=== PATIENT | male | born 1960 | race Caucasian/White ===

== ENCOUNTER 2017-10-20 23:41 | Emergency (ER) | payer SELFPAY, BC | END 2017-10-21 01:14 | disposition left against medical advice (07) | LOC: E/R 23:41 | DX: Z53.21 Procedure and treatment not carried out due to patient leaving prior to being seen by health care provider (principal) ==

== ENCOUNTER 2018-02-24 13:14 | Inpatient (IN) | payer OTHER ==
[2018-02-24 15:54] LABS: URINE PH (Dip) POC 5.5 (5.0-8.5)
[2018-02-24 15:54] LABS: URINE BLOOD (Dip) POC Trace-lysed (NEGATIVE); URINE GLUCOSE (Dip) POC Negative (NEGATIVE); URINE KETONES (Dip) POC Negative (NEGATIVE); URINE LEUKOCYTE EST (Dip) POC Negative (NEGATIVE); URINE NITRITE (Dip) POC Negative (NEGATIVE); URINE TOTAL PROTEIN POC Negative (NEGATIVE)
[2018-02-24] MEDS: ONDANSETRON 4 MG INJ IV (15:54)
[2018-02-24] MEDS: morphine 4 MG/ML VIAL IV (15:54)
[2018-02-24 16:03] LABS: ADD MAN DIFF? NO
[2018-02-24 16:05] LABS: WHITE BLOOD COUNT 7.8 10^3/ul (4.8-10.8)
[2018-02-24 16:05] LABS: BASOPHILS % 0.5 % (0.0-2.0); EOSINOPHILS # 0.1 10^3/ul (0.0-0.5); EOSINOPHILS % 1.8 % (0.0-7.0); HEMATOCRIT 43.3 % (42.0-52.0); HEMOGLOBIN 14.9 g/dl (14.0-18.0); LYMPHOCYTES # 2.6 10^3/ul (0.8-2.9); LYMPHOCYTES % 33.4 % (15.0-51.0); MEAN CORPUSCULAR HEMOGLOBIN 31.8 pg (29.0-33.0); MEAN CORPUSCULAR HGB CONC 34.4 g/dl (32.0-37.0); MEAN CORPUSCULAR VOLUME 92.3 fl (82.0-101.0); MEAN PLATELET VOLUME 10.7 fl (7.4-10.4); MONOCYTE # 0.4 10^3/ul (0.3-0.9); MONOCYTES % 4.6 % (0.0-11.0); NEUTROPHIL # 4.6 10^3/ul (1.6-7.5); NEUTROPHILS % 59.3 % (39.0-77.0); PLATELET COUNT 212 10^3/UL (140-415); RED BLOOD COUNT 4.69 10^6/ul (4.70-6.10); RED CELL DISTRIBUTION WIDTH 12.4 % (11.5-14.5)
[2018-02-24 16:36] LABS: INR 0.93; PROTIME 12.5 Sec (11.9-14.9)
[2018-02-24 16:37] LABS: PARTIAL THROMBOPLASTIN TIME 27.5 Sec (25.0-35.0)
[2018-02-24 16:50] LABS: ALANINE AMINOTRANSFERASE 30 IU/L (13-69); ALBUMIN 4.5 g/dl (3.3-4.9); ALKALINE PHOSPHATASE 70 IU/L (42-121); ANION GAP 15 (8-16); ASPARTATE AMINO TRANSFERASE 21 IU/L (15-46); BILIRUBIN,INDIRECT 0.3 mg/dl (0-1.1); BILIRUBIN,TOTAL 0.3 mg/dl (0.2-1.3); BLOOD UREA NITROGEN 12 mg/dl (7-20); CARBON DIOXIDE 26 mmol/L (21-31); CHLORIDE 106 mmol/L (97-110); CREATININE 0.72 mg/dl (0.61-1.24); GLUCOSE 89 mg/dl (70-220); LIPASE 96 U/L (23-300); POTASSIUM 4.4 mmol/L (3.5-5.1); SODIUM 143 mmol/L (135-144); TOTAL PROTEIN 7.7 g/dl (6.1-8.1)
[2018-02-24] MEDS ORDERED: DOCUSATE SODIUM 100 MG CAP PO (21:00)
[2018-02-24] MEDS ORDERED: ONDANSETRON 4 MG INJ IV (21:00)
[2018-02-24] MEDS ORDERED: BISACODYL (EC) 5 MG TAB PO (21:00)
[2018-02-24] MEDS ORDERED: ACETAMINOPHEN 325 MG TAB PO (21:00)
[2018-02-24] MEDS ORDERED: NACL 0.9% 3 ML SYG IV (21:00)
[2018-02-25] MEDS: POLYMYXIN/BACITRACIN 1L IRRIG IRR
[2018-02-25] MEDS: BUPIVACAINE 0.25%/EPI (MDV) 50 ML VIAL INJ
[2018-02-25] MEDS: SODIUM CHLORIDE 0.9% 1L IRRIG IRR
[2018-02-25] MEDS ORDERED: LIDOCAINE 100 MG SYRINGE (07:00)
[2018-02-25 07:30] LABS: ADD MAN DIFF? NO
[2018-02-25 07:36] LABS: BASOPHILS % 0.4 % (0.0-2.0); EOSINOPHILS # 0.2 10^3/ul (0.0-0.5); EOSINOPHILS % 2.7 % (0.0-7.0); HEMATOCRIT 42.4 % (42.0-52.0); HEMOGLOBIN 14.7 g/dl (14.0-18.0); LYMPHOCYTES # 3.1 10^3/ul (0.8-2.9); MEAN CORPUSCULAR HEMOGLOBIN 32.2 pg (29.0-33.0); MEAN CORPUSCULAR HGB CONC 34.7 g/dl (32.0-37.0); MEAN PLATELET VOLUME 11.2 fl (7.4-10.4); MONOCYTE # 0.4 10^3/ul (0.3-0.9); MONOCYTES % 5.3 % (0.0-11.0); NEUTROPHIL # 4.3 10^3/ul (1.6-7.5); NEUTROPHILS % 53.1 % (39.0-77.0); PLATELET COUNT 218 10^3/UL (140-415); RED BLOOD COUNT 4.56 10^6/ul (4.70-6.10); RED CELL DISTRIBUTION WIDTH 12.6 % (11.5-14.5)
[2018-02-25 07:36] LABS: WHITE BLOOD COUNT 8.2 10^3/ul (4.8-10.8)
[2018-02-25 07:47] LABS: HEMOGLOBIN A1C 5.3 % (0-5.9)
[2018-02-25 07:56] LABS: ALANINE AMINOTRANSFERASE 27 IU/L (13-69); ALBUMIN 3.8 g/dl (3.3-4.9); ALBUMIN/GLOBULIN RATIO 1.35; ALKALINE PHOSPHATASE 74 IU/L (42-121); ANION GAP 14 (8-16); ASPARTATE AMINO TRANSFERASE 17 IU/L (15-46); BILIRUBIN,INDIRECT 0.2 mg/dl (0-1.1); BILIRUBIN,TOTAL 0.2 mg/dl (0.2-1.3); BLOOD UREA NITROGEN 11 mg/dl (7-20); CALCIUM 8.5 mg/dl (8.4-10.2); CARBON DIOXIDE 27 mmol/L (21-31); CHLORIDE 106 mmol/L (97-110); CHOL/HDL RATIO 6.7 RATIO; CHOLESTEROL 216 mg/dl (100-200); CREATININE 0.78 mg/dl (0.61-1.24); GLUCOSE 104 mg/dl (70-220); HDL CHOLESTEROL 32 mg/dl (28-71); LDL CHOLESTEROL,CALCULATED 153 mg/dl; POTASSIUM 4.6 mmol/L (3.5-5.1); SODIUM 142 mmol/L (135-144); TOTAL PROTEIN 6.6 g/dl (6.1-8.1); TRIGLYCERIDES 155 mg/dl (0-149)
[2018-02-25] MEDS: NICOTINE (21 MG/24 HR) PATCH TRANSDERM (09:00)
[2018-02-25 09:06] LABS: THYROID STIMULATING HORMONE 0.849 MIU/L (0.465-4.680)
[2018-02-25] MEDS: SOD CHLORIDE 0.9% 1,000 ML IV ×2 (12:08)
[2018-02-25] MEDS ORDERED: LIDOCAINE 1% (MPF) 30 ML INJ (15:47)
[2018-02-25] MEDS ORDERED: PROPOFOL 20 ML (15:49)
[2018-02-25] MEDS ORDERED: GLYCOPYRROLATE 0.4 MG INJ (15:49)
[2018-02-25] MEDS ORDERED: ROCURONIUM 50 MG INJ (15:49)
[2018-02-25] MEDS ORDERED: NEOSTIGMINE 3 MG/3 ML SYRINGE (15:49)
[2018-02-25] MEDS ORDERED: FENTAnyl 50 MCG/ML VIAL (15:50)
[2018-02-25] MEDS ORDERED: DEXAMETHASONE 4 MG/ML 1 ML INJ (15:50)
[2018-02-25] MEDS ORDERED: ONDANSETRON 4 MG INJ (15:51)
[2018-02-25] MEDS ORDERED: CEFAZOLIN 1 GM INJ (15:54)
[2018-02-25] MEDS ORDERED: SUCCINYLCHOLINE CHLORIDE 100 MG/5 ML SYG IV (15:55)
[2018-02-25] MEDS ORDERED: DIPHENHYDRAMINE 50 MG INJ IV ×2 (16:30)
[2018-02-25] MEDS ORDERED: FENTAnyl 50 MCG/ML VIAL IV ×4 (16:30)
[2018-02-25] MEDS ORDERED: ONDANSETRON 4 MG INJ IV ×2 (16:30)
[2018-02-25] MEDS ORDERED: EPHEDrine SULFATE 50 MG/5 ML SYG IV ×2 (16:30)
[2018-02-25] MEDS ORDERED: ATROPINE 1 MG/10 ML SYRINGE IV ×2 (16:30)
[2018-02-25] MEDS ORDERED: morphine (1 MG/ML) 10ML SYRINGE IV ×6 (16:30)
[2018-02-25] MEDS ORDERED: LABETALOL HCL 20MG INJ IV ×2 (16:30)
[2018-02-25] MEDS ORDERED: hydrALAzine 20 MG INJ IV ×2 (16:30)
[2018-02-25] MEDS ORDERED: OXYCODONE/ACETAMINOPHEN (5/325) TAB PO ×4 (16:30)
[2018-02-25] MEDS ORDERED: MIDAZOLAM 1 MG/ML 2 ML INJ IV ×2 (16:30)
[2018-02-25] MEDS ORDERED: HYDROmorphONE (0.2 MG/ML) 10ML SYG IV ×5 (16:30)
[2018-02-25] MEDS ORDERED: MEPERIDINE 25 MG INJ IV ×2 (16:30)
[2018-02-25] MEDS: HYDROmorphONE (0.2 MG/ML) 10ML SYG IV (18:28)
[2018-02-26] MEDS: HYDROCODONE/APAP (5/325) TAB PO ×4 (00:18→08:59)
[2018-02-26] MEDS: SOD CHLORIDE 0.9% 1,000 ML IV ×2 (00:58→04:21)
[2018-02-26 05:55] LABS: ADD MAN DIFF? NO
[2018-02-26 06:04] LABS: WHITE BLOOD COUNT 10.8 10^3/ul (4.8-10.8)
[2018-02-26 06:04] LABS: BASOPHILS % 0.1 % (0.0-2.0); HEMATOCRIT 40.2 % (42.0-52.0); HEMOGLOBIN 13.7 g/dl (14.0-18.0); LYMPHOCYTES # 1.1 10^3/ul (0.8-2.9); LYMPHOCYTES % 9.9 % (15.0-51.0); MEAN CORPUSCULAR HEMOGLOBIN 31.4 pg (29.0-33.0); MEAN CORPUSCULAR HGB CONC 34.1 g/dl (32.0-37.0); MEAN CORPUSCULAR VOLUME 92.2 fl (82.0-101.0); MEAN PLATELET VOLUME 11.7 fl (7.4-10.4); MONOCYTE # 0.2 10^3/ul (0.3-0.9); MONOCYTES % 1.8 % (0.0-11.0); NEUTROPHIL # 9.5 10^3/ul (1.6-7.5); NEUTROPHILS % 87.6 % (39.0-77.0); PLATELET COUNT 201 10^3/UL (140-415); RED BLOOD COUNT 4.36 10^6/ul (4.70-6.10); RED CELL DISTRIBUTION WIDTH 12.4 % (11.5-14.5)
[2018-02-26 06:18] LABS: ANION GAP 17 (8-16); BLOOD UREA NITROGEN 10 mg/dl (7-20); CALCIUM 8.8 mg/dl (8.4-10.2); CARBON DIOXIDE 25 mmol/L (21-31); CHLORIDE 104 mmol/L (97-110); CREATININE 0.71 mg/dl (0.61-1.24); GLUCOSE 152 mg/dl (70-220); POTASSIUM 5.3 mmol/L (3.5-5.1); SODIUM 141 mmol/L (135-144)
[2018-02-26] MEDS: NICOTINE (21 MG/24 HR) PATCH TRANSDERM (08:34)
[2018-02-26] MEDS ORDERED: HYDROmorphONE 0.5 MG/0.5 ML SYG IV (10:30)
[2018-02-26] MEDS: HYDROmorphONE 2 MG/ML SYG IV (11:19)
[2018-02-26 12:50] LABS: POTASSIUM 4.4 mmol/L (3.5-5.1)
== END 2018-02-26 14:27 | disposition home or self-care (01) | DRG 352 ==
LOC: E/R 13:14 → PP2 18:39
PROC: 0YU64JZ Supplement Left Inguinal Region with Synthetic Substitute, Percutaneous Endoscopic Approach (ICD-10-PCS; principal; 2018-02-25 16:34)
PROC: 0WUF4JZ Supplement Abdominal Wall with Synthetic Substitute, Percutaneous Endoscopic Approach (ICD-10-PCS; 2018-02-25 16:34)
DX: K40.90 Unilateral inguinal hernia, without obstruction or gangrene, not specified as recurrent (principal); K43.9 Ventral hernia without obstruction or gangrene; F17.210 Nicotine dependence, cigarettes, uncomplicated; E78.2 Mixed hyperlipidemia; E66.3 Overweight; Z68.26 Body mass index [BMI] 26.0-26.9, adult
CPT/HCPCS: 36415; 71045; 80048; 80053; 80061; 81003; 83036; 83690; 83735; 84132; 84443; 85025; 85610; 85730; 93005; 99285-25

== ENCOUNTER → 2018-11-06 | Outpatient (CLI) | payer SELFPAY ==
[2018-11-06] MEDS: IOHEXOL 300MG/ML 150 ML BTL (13:05)
[2018-11-06] MEDS: SOD CHLORIDE 0.9% 100 ML (13:05)
== END | disposition home or self-care (01) ==
LOC: C/S 12:13
DX: R10.2 Pelvic and perineal pain (principal)
CPT/HCPCS: 74177

== ENCOUNTER 2018-12-15 17:26 | Emergency (ER) | payer OTHER ==
[2018-12-15] MEDS: HYDROCODONE/APAP (5/325) TAB PO (18:09)
[2018-12-15] MEDS: LIDOCAINE 1% (MDV) 20 ML INJ SC (18:10)
[2018-12-15] MEDS: DIPHTH/TET/ACEL PERTUSS (ADULT) 0.5 ML VIAL IM* (18:10)
[2018-12-15] MEDS: CEPHALEXIN 500 MG CAP PO (18:15)
== END 2018-12-15 19:23 | disposition home or self-care (01) ==
LOC: FTE 17:26
DX: S61.211A Laceration without foreign body of left index finger without damage to nail, initial encounter (principal); S61.213A Laceration without foreign body of left middle finger without damage to nail, initial encounter; F17.210 Nicotine dependence, cigarettes, uncomplicated; W27.0XXA Contact with workbench tool, initial encounter; Y92.9 Unspecified place or not applicable; Z23 Encounter for immunization
CPT/HCPCS: 12001; 73130-LT; 90471; 90715; 99283-25

== ENCOUNTER 2018-12-23 20:00 | Emergency (ER) | payer OTHER | END 2018-12-24 00:26 | disposition home or self-care (01) | LOC: FTE 12-24 00:26 | DX: Z48.01 Encounter for change or removal of surgical wound dressing (principal) | CPT/HCPCS: 99281; Z7502 ==

== ENCOUNTER 2019-05-30 16:11 | Emergency (ER) | payer OTHER ==
[2019-05-30 17:57] LABS: ADD MAN DIFF? NO
[2019-05-30 18:02] LABS: BASOPHILS % 0.4 % (0.0-2.0); EOSINOPHILS # 0.2 10^3/ul (0.0-0.5); EOSINOPHILS % 2.1 % (0.0-7.0); HEMATOCRIT 44.3 % (42.0-52.0); HEMOGLOBIN 15.2 g/dl (14.0-18.0); LYMPHOCYTES # 3.3 10^3/ul (0.8-2.9); LYMPHOCYTES % 36.8 % (15.0-51.0); MEAN CORPUSCULAR HEMOGLOBIN 31.8 pg (29.0-33.0); MEAN CORPUSCULAR HGB CONC 34.3 g/dl (32.0-37.0); MEAN CORPUSCULAR VOLUME 92.7 fl (82.0-101.0); MEAN PLATELET VOLUME 10.5 fl (7.4-10.4); MONOCYTE # 0.6 10^3/ul (0.3-0.9); MONOCYTES % 6.7 % (0.0-11.0); NEUTROPHIL # 4.8 10^3/ul (1.6-7.5); NEUTROPHILS % 53.7 % (39.0-77.0); PLATELET COUNT 224 10^3/UL (140-415); RED BLOOD COUNT 4.78 10^6/ul (4.70-6.10); RED CELL DISTRIBUTION WIDTH 12.1 % (11.5-14.5)
[2019-05-30] MEDS: HYDROCODONE/APAP (5/325) TAB PO (18:03)
[2019-05-30] MEDS: ONDANSETRON (ODT) 4 MG TAB ODT (18:03)
[2019-05-30 18:27] LABS: ALANINE AMINOTRANSFERASE 27 IU/L (13-69); ALBUMIN 4.4 g/dl (3.3-4.9); ALBUMIN/GLOBULIN RATIO 1.37; ALKALINE PHOSPHATASE 60 IU/L (42-121); ANION GAP 12 (5-13); ASPARTATE AMINO TRANSFERASE 22 IU/L (15-46); BILIRUBIN,INDIRECT 0.3 mg/dl (0-1.1); BILIRUBIN,TOTAL 0.3 mg/dl (0.2-1.3); BLOOD UREA NITROGEN 12 mg/dl (7-20); CALCIUM 9.4 mg/dl (8.4-10.2); CARBON DIOXIDE 25 mmol/L (21-31); CHLORIDE 104 mmol/L (97-110); CREATININE 0.75 mg/dl (0.61-1.24); Estimated GFR > 60 mL/min (>60); GLUCOSE 111 mg/dl (70-220); SODIUM 141 mmol/L (135-144); TOTAL PROTEIN 7.6 g/dl (6.1-8.1)
[2019-05-30 18:28] LABS: LIPASE 92 U/L (23-300)
[2019-05-30 18:40] LABS: ADD UMIC YES; UR ASCORBIC ACID NEGATIVE (NEGATIVE); UR BACTERIA FEW /HPF (NONE SEEN); UR BILIRUBIN (Dip) NEGATIVE (NEGATIVE); UR BLOOD (Dip) NEGATIVE (NEGATIVE); UR CLARITY CLEAR (CLEAR); UR COLOR YELLOW (YELLOW); UR GLUCOSE (Dip) NEGATIVE (NEGATIVE); UR KETONES (Dip) 1+ mg/dL (NEGATIVE); UR LEUKOCYTE ESTERASE (Dip) 1+ Leu/ul (NEGATIVE); UR MUCUS MANY /HPF (NONE SEEN); UR NITRITE (Dip) NEGATIVE (NEGATIVE); UR RBC 2 /HPF (0-5); UR SPECIFIC GRAVITY (Dip) 1.028 (1.003-1.030); UR TOTAL PROTEIN (Dip) NEGATIVE (NEGATIVE); UR UROBILINOGEN (Dip) 1+ mg/dL (NEGATIVE); UR WBC 1 /HPF (0-5)
== END 2019-05-30 19:46 | disposition home or self-care (01) ==
LOC: FTE 16:11
DX: M54.5 Low back pain (principal); F17.210 Nicotine dependence, cigarettes, uncomplicated; N30.00 Acute cystitis without hematuria
CPT/HCPCS: 72131; 74176; 80053; 81001; 83690; 85025; 99284-25